=== PATIENT | female | born 1940 | race Caucasian/White ===

== ENCOUNTER 2016-11-29 09:01 | Emergency (ER) | payer OTHER, BC ==
[~2016-11-29] VITALS: Ht 162.6 cm; Wt 82.0 kg
[~2016-11-29 09:01] MED LIST: ADULT LOW DOSE81 M1 PO; ASPIR-TRIN325 M1 PO; ASPIRIN81 M1 PO; CENTRUM SILVER1 EAC3 PO; COUMADIN1 MG PO; COUMADIN2 MG PO; CRESTOR20 MG PO; DOCUSATE SODIU100 MG PO; FOLIC ACID1 MG PO; GLUCOPHAGE500 MG PO; HYDROCHLOROTHIA25 MG PO; LEVOTHYROXINE100 MCG PO; LOSARTAN POTAS100 MG PO; LUMIGAN 0.50 DROP/22 BOTH EYES; METHOTREXATE2.5 MG PO; MICARDIS HCT1 TABLET PO; MILK OF MAGNESI10 ML PO; MORPHINE SULFAT15 M1 PO; MOTRIN800 MG PO; MULTI-DAY VITA1 EACH PO; MULTIVITAMINS; NORVASC5 MG PO; OXYCODONE HCL5 MG PO; SENNA8.6 MG PO; SYNTHROID100 MCG PO; TYLENOL REGULA325 MG PO
[2016-11-29 11:37] VITALS: BP 158/75
== END 2016-11-29 11:38 | disposition home or self-care (01) ==
LOC: EME 09:01
DX: S80.01XA Contusion of right knee, initial encounter (principal); S09.90XA Unspecified injury of head, initial encounter; S00.83XA Contusion of other part of head, initial encounter; M54.2 Cervicalgia; W01.198A Fall on same level from slipping, tripping and stumbling with subsequent striking against other object, initial encounter; Y93.01 Activity, walking, marching and hiking; E11.9 Type 2 diabetes mellitus without complications; I10 Essential (primary) hypertension; Z79.84 Long term (current) use of oral hypoglycemic drugs
CPT/HCPCS: 70450; 70480; 72125; 73564; 99281; 99284